=== PATIENT | male | born 2000 | race Caucasian/White ===

== ENCOUNTER 2024-11-01 08:58 | Outpatient (CLI) | payer BC, SELFPAY ==
[2024-11-01 10:15] LABS: Alanine Aminotransferase 19 U/L (6-50); Albumin Level 4.6 g/dL (3.5-5.1); Alkaline Phosphatase 80 U/L (38-126); Aspartate Amino Transferase 24 U/L (17-59); Bilirubin,Total 0.4 mg/dL (0.2-1.3)
== END 2024-11-01 08:59 | disposition home or self-care (01) ==
PROVIDERS: Visit Provider Podiatrist Foot & Ankle Surgery
DX: B35.1 Tinea unguium (principal)
CPT/HCPCS: 36415; 80076